=== PATIENT | female | born 1970 | race Caucasian/White ===

== ENCOUNTER 2019-04-09 12:37 | Day surgery (SDC) | payer BC ==
[2019-04-09] MEDS ORDERED: Lactated Ringers 1,000 ML IV SCH (12:45)
[2019-04-09] MEDS ORDERED: Sodium Chloride 0.9% 10 ML Syringe FLUSH PRN (12:45)
[2019-04-09] MEDS ORDERED: Propofol 200 MG/20 ML SDV ONE ×2 (13:20→14:39)
[2019-04-09] MEDS ORDERED: Propofol 200 MG/20 ML SDV IV ONE ×2 (14:16)
--- NOTE | 2019-04-09 14:17 | PCM.PN ---
- General Info Date of Service: 04/09/19 - Review of Systems Systems Review Comment:: 48-year-old female presents for her initial screening colonoscopy. She denies any recent problems with bowel movements. She denies any known family history of colon cancer. She is medically stable to proceed today. Her recent history and physical is reviewed and no significant changes are noted. I discussed the proposed colonoscopy with the patient. Risks such as but not limited to bleeding and GI injury reviewed. She agrees to proceed. - Patient Data Vitals - Most Recent: Last Vital Signs Temp 98.6 F 04/09/19 12:45 Pulse 71 04/09/19 12:45 Resp 16 04/09/19 12:45 BP 120/58 L 04/09/19 12:45 Pulse Ox 94 L 04/09/19 12:45 Weight - Most Recent: 93.894 kg Med Orders - Current: Current Medications Lactated Ringer's (Ringers, Lactated) 1,000 mls @ 30 mls/hr IV ASDIRECTED JOEY Last Admin: 04/09/19 13:32 Dose: 30 mls/hr Sodium Chloride (Saline Flush) 10 ml FLUSH Q8HR PRN PRN Reason: keep vein open Discontinued Medications Propofol (Diprivan 20 Ml) Confirm Administered Dose 400 mg .ROUTE .STK-MED ONE Stop: 04/09/19 13:21 Sepsis Event Note - Focused Exam Vital Signs: Vital Signs Temp Pulse Resp BP Pulse Ox 04/09/19 12:45 98.6 F 71 16 120/58 L 94 L Date Exam was Performed: 04/09/19 Time Exam was Performed: 14:16 - Problem List Review Problem List Initiated/Reviewed/Updated: Yes - My Orders Last 24 Hours: My Active Orders 04/09/19 12:45 Peripheral IV Care [RC] . DIRECTED Verify Patient Consent Obtain [RC] ASDIRECTED Vital Signs [RC] PER UNIT ROUTINE Lactated Ringers [Ringers, Lactated] 1,000 ml IV ASDIRECTED Sodium Chloride 0.9% [Saline Flush] 10 ml FLUSH Q8HR PRN Peripheral IV Insertion Adult [OM.PC] Routine 04/09/19 Breakfast Nothing Per Oral Diet [DIET] - Assessment Assessment:: Colon cancer screening - Plan Plan:: Colonoscopy
--- NOTE | 2019-04-09 14:54 | PCM.OPNOTE ---
- General Post-Op/Procedure Note Date of Surgery/Procedure: 04/09/19 Operative Procedure(s): Colonoscopy with polypectomy Findings: Small sigmoid colon polyps Colon otherwise normal Pre Op Diagnosis: Colon cancer screening Post-Op Diagnosis: Colon polyps Anesthesia Technique: MAC Primary Surgeon: Luisito Ferrer Pathology: Sigmoid colon polyps EBL in mLs: 0 Complications: None Condition: Good
--- NOTE | 2019-04-09 17:50 | OR ---
DATE OF SURGERY: 04/09/2019 SURGEON: Luisito Ferrer MD PREOPERATIVE DIAGNOSIS: Colon cancer screening. POSTOPERATIVE DIAGNOSIS: Sigmoid colon polyps. OPERATION PERFORMED: Colonoscopy with polypectomy. INDICATIONS FOR SURGERY: This 48-year-old female presents today for her initial screening colonoscopy. FINDINGS: Two small polyps are noted in the sigmoid colon 15 cm from the anal verge. These are a 3-4 mm benign-appearing polyps. The remainder of the colon and rectum appeared normal. DESCRIPTION OF PROCEDURE: The patient was taken to the operating room. She was given intravenous sedation and with her in the left lateral decubitus position, digital rectal exam was performed. No rectal masses are noted. The Olympus colonoscope was inserted into the rectum. Retroflexed examination of the rectal canal was performed. The scope was advanced to the sigmoid region where the above-described polyps were identified. These were removed completely with biopsy forceps and submitted as a single specimen. The scope was then carefully advanced under direct visualization through the entire length of the colon until cecum is reached. Cecal acquisition is confirmed by noting the normal internal cecal anatomy including the appendiceal orifice and ileocecal valve. The light is also noted to transilluminate the abdominal wall in the right lower quadrant. The ileocecal valve was cannulated and the terminal ileum was examined and appeared normal. The scope was slowly withdrawn sequentially re-examining the colonic segments until the entire colon and rectum had been fully examined. The scope was removed and the patient was taken from the operating room in satisfactory condition. ESTIMATED BLOOD LOSS: Zero. COMPLICATIONS: None. PROGNOSIS: Good. /[id number]/MODL
== END 2019-04-09 16:11 | disposition home or self-care (01) ==
LOC: KA.SDS 12:37
PROVIDERS: ATTEND Surgery
DX: Z12.11 Encounter for screening for malignant neoplasm of colon (principal); K63.5 Polyp of colon; E78.5 Hyperlipidemia, unspecified; Z88.5 Allergy status to narcotic agent; E73.9 Lactose intolerance, unspecified; Z79.82 Long term (current) use of aspirin; Z79.899 Other long term (current) drug therapy; Z87.891 Personal history of nicotine dependence
CPT/HCPCS: J2704; J7120